=== PATIENT | female | born 1990 | race Caucasian/White ===

== ENCOUNTER 2018-09-02 13:02 | Emergency (ER) | payer OTHER ==
[~2018-09-02] VITALS: Ht 165.1 cm; Wt 56.0 kg
[2018-09-02 13:10] VITALS: BP 131/71; PULSE 104; RESP 18; Ht 165.1 cm; Wt 56.0 kg
[2018-09-02] MEDS ORDERED: AMOX1TAB10 PO (14:44)
[2018-09-02] MEDS ORDERED: NPH10OT LEFT EAR (14:44)
--- NOTE | 2018-09-02 14:48 | ERD ---
ER Documentation Chief Complaint Chief Complaint sorethroat, fever, blocked left ear x4 days, scheduled surgery sunday HPI Patient is a 28-year-old female with no medical problems who presents with left ear clogged and flulike symptoms. She said that she started with flulike symptoms last night and feels like her left ear is clogged. She has had fevers for the past few days as well. She had a cough which it started on . She had sore throat as well. She tried Tylenol and NyQuil. Her primary doctor is Dr. Delacruz. ROS All systems reviewed and are negative except as per history of present illness. Medications Home Meds Active Scripts Neomycin/Polymyxin/Hydrocort* (Cortisporin* Otic) 10 Ml Susp, 4 DROP LEFT EAR QID for 7 Days, EA Prov:MITZI ALLISON MD 09/02/18 Amoxicillin/Potassium Clav (Amox-Clav 875-125 mg Tablet) 875-125 mg Tab, 1 TAB PO BID for 7 Days, #14 TAB Prov:MITZI ALLISON MD 09/02/18 Allergies Allergies: Coded Allergies: No Known Allergy (Unverified , 09/02/18) PMhx/Soc Medical and Surgical Hx: pt denies Medical Hx FmHx Family History: diabetes Physical Exam Vitals Vital Signs Date Temp Pulse Resp B/P (MAP) Pulse Ox O2 O2 Flow FiO2 Time Delivery Rate 09/02/18 98.2 104 18 131/71 100 13:10 (91) Physical Exam Const: No acute distress Head: Atraumatic Eyes: Normal Conjunctiva ENT: Right tympanic membrane is normal, left tympanic membranes appears to have a dark brownish fluid behind the membrane, no pharyngitis Neck: Full range of motion. No meningismus. Resp: Clear to auscultation bilaterally Cardio: Regular rate and rhythm, no murmurs Abd: Soft, non tender, non distended. Normal bowel sounds Skin: No petechiae or rashes Back: No midline or flank tenderness Ext: No cyanosis, or edema Neur: Awake and alert Psych: Normal Mood and Affect Procedures/MDM Patient is a 28-year-old female who presents with what appears to be an acute otitis media. The patient will be treated with Augmentin for 7-day course as well as Cortisporin otic drops. The patient will need to follow-up closely with her primary doctor within 1 week. She can return for any worsening symptoms. She is otherwise well-appearing. She has a D&C scheduled for and is concerned she may not be able to get this. I would consider her medically clear at this time and I would think that she would be able to get her procedure done. I did tell her that the final disposition likely will be related to the anesthesiologist and the dental laboratory manager performing the procedure. Departure Diagnosis: Primary Impression: Otitis media Otitis media type: unspecified Chronicity: acute Qualified Codes: H66.90 - Otitis media, unspecified, unspecified ear Additional Impression: Sore throat Condition: Fair Patient Instructions: Otitis Media, Abx Tx (Adult) Referrals: Dr. Delacruz Additional Instructions: Call your primary care doctor TOMORROW for an appointment during the next 1 WEEK.Tell the medical office secretary that you were referred from this facility.See the doctor sooner or return here if your condition worsens before your appointment time. MITZI ALLISON MD Sep 02, 2018 14:48
== END 2018-09-02 15:08 | disposition home or self-care (01) ==
LOC: FTE 13:02
DX: H66.92 Otitis media, unspecified, left ear (principal); J02.9 Acute pharyngitis, unspecified
CPT/HCPCS: 99283

== ENCOUNTER 2018-09-17 05:48 | Day surgery (SDC) | payer OTHER ==
[2018-09-16 10:10] VITALS: Ht 165.1 cm; Wt 57.1 kg
[~2018-09-17] VITALS: Ht 165.1 cm; Wt 57.1 kg
[2018-09-17] VITALS (10 sets, daily range): BP systolic 96–136; BP diastolic 56–78; PULSE 52–64; RESP 12–18
--- NOTE | 2018-09-17 04:56 | PREOPHP ---
DATE OF ADMISSION: 09/17/2018 HISTORY OF PRESENT ILLNESS: This is a 28-year-old lady, 0. Her last normal menstrual period was few days prior to admission. She was admitted for LEEP and D and C. This patient had an abnorm al Pap smear in May 2018, which WAYLON 3 high grade KATLIN. She had a colposcopy biopsy done and the col poscopy biopsy showed WAYLON 2. To rule out cervical carcinoma, the patient was admitted for LEEP and D and C. The procedures were explained to the patient and she understood everything totally. The ris ks, benefits, and alternatives were discussed with her as well. PAST PERSONAL HISTORY: No history of diabetes, TB, asthma. ALLERGIES: NO ALLERGIES. SOCIAL HISTORY: Patient does not smoke. She does not drink. MEDICATIONS: She does not take any drugs except for control pills. GYNECOLOGIC HISTORY: She had menarche at the age of 14, every 28 days interval, 3 to 4 days duration , and moderate in amount. FAMILY HISTORY: Noncontributory. PAST SURGICAL HISTORY: She had tonsillectomy. She had foot surgery. She had hernia surgery. REVIEW OF SYSTEMS: CARDIOVASCULAR: No chest pains. RESPIRATORY: No cough. GASTROINTESTINAL: No diarrhea, no vomiting. GENITOURINARY: No dysuria. PHYSICAL EXAMINATION: GENERAL: Reveals a conscious, coherent lady and in no acute distress. VITAL SIGNS: Her blood pressure 120/80, pulse rate 80 per minute, respirations 16 per minute. BREASTS, HEART AND LUNGS: Within normal limits. ABDOMEN: Soft. PELVIC: Revealed the cervix to be firm, uterus of normal size, and adnexa were negative for masses. RECTAL: Confirmed the pelvic findings. EXTREMITIES: No pedal edema. ADMITTING DIAGNOSIS: Cervical intraepithelial neoplasia 2, moderate cervical dysplasia, rule out cer vical carcinoma. The patient was planned to have the LEEP and D and C. Procedures were explained to the patient and she understood everything totally. The risks, benefits and alternatives were discus sed with her as well. Dictated By: FRANCISCA ROJAS/MAGGIE Conf#: [id number] DID#: [id number]
[~2018-09-17 05:48] MED LIST: AMOX1TAB10 PO; NORE-122 PO; NPH10OT LEFT EAR
[2018-09-17] MEDS ORDERED: LACTATED RINGER'S 1,000 ML IV SCH (08:00)
--- NOTE | 2018-09-17 08:21 | PREAC ---
Date/Time of Note Date/Time of Note DATE: 09/17/18 TIME: 08:20 Anesthesia Eval and Record Evaluation Time Pre-Procedure Interview DATE: 09/17/18 TIME: 08:20 Age 28 Sex female NPO: 8 hrs Preoperative diagnosis abnormal pap smear, rule out cervical carcinoma Planned procedure LEEP; D&C Past Medical History Past Medical History: Includes Pulm: Other (2 weeks ago, URI, finsihed antibiotics, currently only has congestion left ear) Surgery & Anesthesia Issues No known issue Meds Anticoagulation: No Beta Michelle within 24 hr: No Reason Beta Michelle not given: Pt. not on B-Michelle Active Scripts Neomycin/Polymyxin/Hydrocort* (Cortisporin* Otic) 10 Ml Susp, 4 DROP LEFT EAR QID for 7 Days, EA Prov:MITZI ALLISON MD 09/02/18 Amoxicillin/Potassium Clav (Amox-Clav 875-125 mg Tablet) 875-125 mg Tab, 1 TAB PO BID for 7 Days, #14 TAB Prov:MITZI ALLISON MD 09/02/18 Reported Medications Norethindrone-E.estradiol-Iron (Blisovi Fe 1-20 Tablet) 1 Each Tablet, 1 EACH PO DAILY, TAB 09/16/18 Current Medications Lactated Ringer's 1,000 ml @ 25 mls/hr Q24H IV Last administered on 09/17/18at 07:53; Admin Dose 25 MLS/HR; Start 09/17/18 at 08:00 Meds reviewed: Yes (BCP ) Allergies Coded Allergies: No Known Allergy (Unverified , 09/17/18) Allergies Reviewed: Yes Labs/Studies Labs Reviewed: Reviewed by anesthesiologist Blood Bank Test 09/16/18 10:20 Antibody Screen NEGATIVE Blood Type O POSITIVE test: Negative Pre-procedure Exam Last vitals Vital Signs Date Temp Pulse Resp B/P (MAP) Pulse Ox O2 O2 Flow FiO2 Time Delivery Rate 09/17/18 97.6 55 16 107/56 100 Room Air 07:47 (73) Airway: Adequate mouth opening, Adequate thyromental dist Mallampati: Mallampati I Teeth: Normal Lung: Normal Heart: Normal ASA Physical Status ASA physical status: 1 Emergency: None Planned Anesthetic General/MAC: LMA Planned Pain Management Parenteral pain med, Local by surgeon Pre-operative Attestations Prior to commencing anesthesia and surgery, the patient was re-evaluated, there was verification of: *The patient's identity *The results of appropriate recent lab work and preoperative vital signs *The above evaluation not changing prior to induction *Anesthetic plan, risk benefits, alternative and complications discussed with patient/family; questions answered; patient/family understands, accepts and wishes to proceed. ADRIAN CEDENO Sep 17, 2018 08:21
[2018-09-17] MEDS ORDERED: FENTAnyl 50 MCG/ML VIAL ONE (08:25)
[2018-09-17] MEDS ORDERED: PROPOFOL 20 ML ONE (08:25)
[2018-09-17] MEDS ORDERED: LIDOCAINE 2% (SDV) 5 ML INJ ONE (08:25)
[2018-09-17] MEDS ORDERED: METOCLOPRAMIDE 10 MG INJ ONE (08:45)
[2018-09-17] MEDS ORDERED: DEXAMETHASONE 4 MG/ML 5 ML INJ ONE (08:45)
[2018-09-17] MEDS ORDERED: ONDANSETRON 4 MG INJ ONE (08:45)
[2018-09-17] MEDS ORDERED: FAMOTIDINE 20 MG INJ ONE (08:45)
[2018-09-17] MEDS ORDERED: OXYCODONE/ACETAMINOPHEN (5/325) TAB PO PRN ×2 (09:00)
[2018-09-17] MEDS ORDERED: FENTAnyl 50 MCG/ML VIAL IV PRN ×3 (09:00)
[2018-09-17] MEDS ORDERED: MEPERIDINE 25 MG INJ IV PRN (09:00)
[2018-09-17] MEDS ORDERED: ONDANSETRON 4 MG INJ IV PRN (09:00)
[2018-09-17] MEDS ORDERED: ALBUTEROL 0.083% (NEB) 2.5 MG/3 ML AMP HHN PRN (09:00)
[2018-09-17] MEDS ORDERED: STRONG IODINE 14 ML SOLUTION TOP ONE (09:19)
[2018-09-17] MEDS ORDERED: KETOROLAC 30 MG INJ ONE (09:51)
--- NOTE | 2018-09-17 10:03 | SIPON ---
Date/Time of Note Date/Time of Note DATE: 09/17/18 TIME: 10:00 Operative Report Preoperative Diagnosis cin2 Postoperative Diagnosis same plus pending path report Operation/Procedure Performed leep &d&d&c Surgeon see signature line planning assistant regulatory and compliance technician Anesthesia: general Estimated blood loss: minimal Transfusion Required none Specimen ectocx endocx ecc ecmc Grafts/Implants none Complications none FRANCISCA DAVID MD Sep 17, 2018 10:03
[2018-09-17] MEDS ORDERED: ACETAMINOPHEN 325 MG TAB PO PRN (10:30)
--- NOTE | 2018-09-17 12:25 | PAC ---
Date/Time of Note Date/Time of Note DATE: 09/17/18 TIME: 12:25 Post-Anesthesia Notes Post-Anesthesia Note Last documented vital signs Vital Signs Date Temp Pulse Resp B/P (MAP) Pulse Ox O2 O2 Flow FiO2 Time Delivery Rate 09/17/18 98.1 56 16 136/64 100 Room Air 11:24 (88) 09/17/18 3.0 10:05 Activity: WNL Respiratory function: WNL Cardiovascular function: WNL Mental status: Baseline Pain reasonably controlled: Yes Hydration appropriate: Yes Nausea/Vomiting absent: Yes ADRIAN CEDENO Sep 17, 2018 12:25
--- NOTE | 2018-09-17 19:18 | OPR ---
DATE OF OPERATION: 09/17/2018 PREOPERATIVE DIAGNOSIS: Cervical intraepithelial neoplasia 2 per colposcopy directed biopsy. POSTOPERATIVE DIAGNOSIS: Pending pathology report. SURGEON: Venus Goins MD INTAKE ASSESSOR: Avelino werner. ANESTHESIA: General. OPERATION PERFORMED: Loop electrosurgical excision procedure and dilation and curettage. OPERATIVE TECHNIQUE: Under general anesthesia, the patient was prepped and draped in the usual fashi on for vaginal surgery. Pelvic exam under anesthesia revealed the cervix to be firm, uterus of venus l size, and adnexa were negative for masses. Then, the heavy weighted vaginal retractor was put in p lace, and the anterior lip of the cervix was grasped with an Allis clamp. The cervix and vagina was dabbed with Lugol solution. The whole external os of the cervix did not take the Lugol's. The loop was passed from left to right from the anterior lip of the cervix and from left to right from the pos terior lip of the cervix. A good amount of tissue was obtained. A smaller loop was passed up to the endocervical canal. A good amount of tissue was obtained. Endocervical curettage was done and a sm all amount of tissue was obtained. Endometrial curettage was done and small amount of tissue was obt ained. The site of the biopsy was cauterized with a ball cautery. There was no bleeding after the c auterization. A small piece of Surgicel was left at the site of the biopsy. The patient tolerated t he procedure well. Estimated blood loss was minimal. Vital signs were stable during and after the p rocedure. Dictated By: VENUS GOINS MD NS/NTS Conf#: [id number] DID#: [id number] CC: VENUS GOINS MD;*EndCC*
== END 2018-09-17 11:20 | disposition home or self-care (01) ==
LOC: SDS 05:48
PROVIDERS: ATTEND Obstetrics & Gynecology
DX: N87.1 Moderate cervical dysplasia (principal)
CPT/HCPCS: 57522; 84702; 86850; 86900; 86901; 88305; J1100; J1885; J2405; J2765; J3010; Z7512; Z7610